=== PATIENT | male | born 1950 | race Two or more races ===

== ENCOUNTER 2018-04-07 06:03 | Inpatient (IN) | payer MEDICARE, MEDICAID ==
[~2018-04-07] VITALS: Ht 1 cm; Wt 50.4 kg
[2018-04-07] MEDS ORDERED: SODIUM CHLORIDE 0.9% 1,000 ML IV ONE (07:24)
[2018-04-07 07:47] LABS: Basophils # (auto) 0.2 uL; Eosinophils # (auto) 0.2 uL; Hematocrit 26.4 % (41.0-53.0); Monocytes # (auto) 0.5 uL
[2018-04-07 07:50] LABS: Basophils % (auto) 2.4 % (0.0-2.0); Eosinophils % (auto) 2.8 % (0.0-7.0); Hemoglobin 8.1 g/dL (13.5-17.5); Lymphocytes # (auto) 0.9 uL; Mean Corpuscular Hemoglobin 29.5 pg (28.0-32.0); Mean Corpuscular Hgb Conc. 30.7 g/dL (32.0-36.0); Mean Corpuscular Volume 96.3 fL (80.0-100.0); Neutrophils # (auto) 5.6 uL; Neutrophils % (auto) 75.8 % (37.0-80.0); Platelet Count (auto) 316 10^3/uL (140-450); Red Blood Cells 2.74 10^6/uL (4.5-5.90); White Blood Cell 7.3 10^3/uL (4.4-10.8)
[2018-04-07 07:54] LABS: Red Cell Distribution Width 20.5 % (11.8-14.3)
[2018-04-07 08:02] LABS: INR 1.14 (0.9-1.15); Partial Thromboplastin Time 29.2 sec (23.78-33.04); Prothrombin Time 12.1 sec (9.27-12.13)
[2018-04-07 08:18] LABS: Alanine Aminotransferase 26 U/L (16-61); Albumin 2.7 g/dL (3.4-5.0); Alkaline Phosphatase 133 U/L (45-117); Anion Gap 11 (5-15); Aspartate Aminotransferase 27 U/L (15-37); BUN/Creatinine Ratio 7.3; Bilirubin, Total 0.6 mg/dL (0.2-1.0); Blood Urea Nitrogen 54 mg/dL (7-18); Calcium 8.9 mg/dL (8.5-10.1); Carbon Dioxide 26 mmol/L (21-32); Chloride 104 mmol/L (98-107); GFR African American 9 mL/min; GFR Non-African American 8 mL/min; Glucose 81 mg/dL (74-106); Potassium 4.2 mmol/L (3.5-5.1); Sodium 141 mmol/L (136-145); Total Protein 7.7 g/dL (6.4-8.2)
[2018-04-07] MEDS ORDERED: AZITHROMYCIN 500MG/ 250ML 250 ML IV ONE (09:00)
[2018-04-07] MEDS ORDERED: cefTRIAXone 1GM/10ml IVPUSH 10 ML IV ONE (09:00)
[2018-04-07] MEDS ORDERED: DEXTROSE (50%) 50ML SYRG IV PRN (12:45)
[2018-04-07] MEDS ORDERED: SENNA 8.6 MG TAB PO PRN (12:45)
[2018-04-07] MEDS ORDERED: NITROGLYCERIN 0.4 MG SL TAB SL PRN (13:00)
[2018-04-07] MEDS ORDERED: HYDROcodone-ACET 5/325MG TAB PO PRN (13:00)
[2018-04-07] MEDS ORDERED: ONDANSETRON HCL 4 MG/2 ML VIAL IV PRN (13:00)
[2018-04-07] MEDS ORDERED: MORPHINE SULF INJ 2 MG/ML SYRINGE 1ML IV PRN (13:00)
[2018-04-07] MEDS ORDERED: ACETAMINOPHEN 325 MG TAB PO PRN (13:00)
[2018-04-07] MEDS ORDERED: DOCUSATE SOD 100 MG CAP PO PRN (13:00)
[2018-04-07 13:44] VITALS: BP 177/100
[2018-04-07] MEDS ORDERED: SODIUM CHLOR 0.9% PF (SALINE LOCK) 10ML VIAL/SYR IV SCH (14:00)
[2018-04-07] MEDS ORDERED: FAMOTIDINE 20 MG TAB PO SCH ×2 (14:00→22:00)
[2018-04-07] MEDS ORDERED: INSLANTI SC (15:53)
[2018-04-07] MEDS ORDERED: LEVO50TA7 PO (15:53)
[2018-04-07] MEDS ORDERED: ZIN220C PO (15:53)
[2018-04-07] MEDS ORDERED: CALC667C5 PO (15:53)
[2018-04-07] MEDS ORDERED: FERR-20 PO (15:53)
[2018-04-07] MEDS ORDERED: B-CO1TAB24 PO (15:53)
[2018-04-07] MEDS ORDERED: LISI10TA6 PO (15:53)
[2018-04-07] MEDS ORDERED: CLOP75TA28 PO (15:53)
[2018-04-07] MEDS ORDERED: FAMO-12 PO (15:53)
[2018-04-07] MEDS ORDERED: CARV12.544 PO (15:53)
[2018-04-07] MEDS ORDERED: AML5T PO (15:53)
[2018-04-07] MEDS ORDERED: SENN-46 PO (15:53)
[2018-04-07] MEDS ORDERED: POM (16:01)
[2018-04-07 17:00] VITALS: BP 134/59
[2018-04-07] MEDS ORDERED: InsuLIN REG 1unit/0.01ml Soln (100units/ml) SC SCH (17:00)
[2018-04-07] MEDS ORDERED: ACCU-CHEK COMFORT CURVE STRIP VI SCH (17:00)
[2018-04-07] MEDS ORDERED: Glucerna Carbsteady SHAKE Vanilla 8oz PO SCH (18:00)
[2018-04-07] MEDS ORDERED: LISINOPRIL 10 MG TAB PO SCH (18:00)
[2018-04-07] MEDS ORDERED: CALCIUM ACETATE 667 MG CAP PO SCH (18:00)
[2018-04-07] MEDS ORDERED: DEXTROSE 10% 1,000 ML IV SCH (18:15)
[2018-04-07] MEDS ORDERED: ASCORBIC ACID 500 MG TAB PO SCH (22:00)
[2018-04-07] MEDS ORDERED: CARVEDILOL 12.5 MG TAB PO SCH (22:00)
[2018-04-07] MEDS ORDERED: INSULIN LANTUS (GLARGINE) 1 /0.01ml (100units/ml) SC SCH (22:00)
[2018-04-08] MEDS ORDERED: LEVOTHYROXINE SODIUM 50 MCG TAB PO SCH (07:00)
[2018-04-08] MEDS ORDERED: cefTRIAXone 1GM/10ml IVPUSH 10 ML IV SCH (09:00)
[2018-04-08] MEDS ORDERED: amLODIPine BESYLATE 5 MG TAB PO SCH (10:00)
[2018-04-08] MEDS ORDERED: CLOPIDOGREL BISULFATE 75 MG TAB PO SCH (10:00)
[2018-04-08] MEDS ORDERED: AZITHROMYCIN 500MG/ 250ML 250 ML IV SCH (10:00)
[2018-04-08] MEDS ORDERED: B-COMPLEX W/ C & FOLIC ACID(NEPHROVITE TAB) PO SCH (10:00)
[2018-04-08] MEDS ORDERED: MULTIPLE VITAMIN TAB PO SCH (10:00)
[2018-04-08] MEDS ORDERED: EPOETIN ALFA 10,000 UNIT/1 ML VIAL IV ONE (10:00)
[2018-04-08] MEDS ORDERED: SODIUM CHL 0.9% 1000 ML BAG XX ONE (10:00)
[2018-04-08] MEDS ORDERED: ZINC SULFATE 220 MG CAP PO SCH (10:00)
[2018-04-08] MEDS ORDERED: ONGLYZA 2.5 MG PO SCH (10:00)
[2018-04-08] MEDS ORDERED: FERROUS SULFATE 325 MG TAB PO SCH (10:00)
== END 2018-04-08 02:52 | disposition expired | DRG 871 ==
LOC: EDBD 06:03 → ER 06:18 → TELE 06:19 → TELE-WESTW 13:40
PROVIDERS: ADMIT Internal Medicine; ATTEND Internal Medicine
DX: A41.9 Sepsis, unspecified organism (principal); G93.41 Metabolic encephalopathy; E43 Unspecified severe protein-calorie malnutrition; J69.0 Pneumonitis due to inhalation of food and vomit; N18.6 End stage renal disease; I12.0 Hypertensive chronic kidney disease with stage 5 chronic kidney disease or end stage renal disease; Z68.43 Body mass index [BMI] 50.0-59.9, adult; E11.21 Type 2 diabetes mellitus with diabetic nephropathy; E11.22 Type 2 diabetes mellitus with diabetic chronic kidney disease; E11.621 Type 2 diabetes mellitus with foot ulcer; E11.51 Type 2 diabetes mellitus with diabetic peripheral angiopathy without gangrene; E11.649 Type 2 diabetes mellitus with hypoglycemia without coma; F17.200 Nicotine dependence, unspecified, uncomplicated; I70.8 Atherosclerosis of other arteries; K80.20 Calculus of gallbladder without cholecystitis without obstruction; N20.0 Calculus of kidney; I70.90 Unspecified atherosclerosis; Z99.2 Dependence on renal dialysis; Z89.431 Acquired absence of right foot
CPT/HCPCS: 36415; 70450; 71045; 74176; 80053; 82962; 83036; 83605; 84443; 84484; 85025; 85610; 85730; 87040; 87081; 93005; 96361; 96365; 96375; J0885